=== PATIENT | female | born 2000 | race Two or more races ===

== ENCOUNTER 2020-09-16 16:13 | Emergency (ER) | payer SELFPAY ==
[2020-09-16] MEDS ORDERED: Sodium Chloride 0.9% 1,000 ML IV ONE (16:45)
[2020-09-16] MEDS ORDERED: Sodium Chloride 0.9% 2.5 ML Syringe FLUSH PRN (16:45)
[2020-09-16] MEDS ORDERED: Ondansetron 4 MG/2 ML SDV IVPUSH ONE (16:45)
[2020-09-16] MEDS ORDERED: Ketorolac 30 MG/ML SDV IVPUSH ONE (16:45)
[2020-09-16] MEDS ORDERED: Sodium Chloride 0.9% 10 ML Syringe FLUSH PRN (16:45)
[2020-09-16] MEDS ORDERED: Morphine 2 MG/ML SYRINGE IVPUSH ONE (16:45)
[2020-09-16 17:38] LABS: BLOOD UREA NITROGEN,BUN 12 mg/dL (7.0-18.0); CARBON DIOXIDE,CO2 22.7 mmol/L (21.0-32.0); CHLORIDE,CL 107 mmol/L (98-107); GLUCOSE RANDOM 93 mg/dL (74-106); LIPASE 149 U/L (73-393); POTASSIUM,K 3.5 mmol/L (3.5-5.1); SODIUM,NA 143 mmol/L (136-145)
--- NOTE | 2020-09-16 18:58 | CT ---
INDICATION: Right lower quadrant pain. Blood in stool TECHNIQUE: CT abdomen and pelvis acquired with IV contrast. 100 mL of Isovue 370 administered. COMPARISON: None available FINDINGS: Lower chest: Unremarkable. Liver: Unremarkable. Spleen: Unremarkable. Pancreas: Unremarkable. Gallbladder and bile ducts: Unremarkable. Adrenal glands: Unremarkable. Kidneys: Unremarkable. GI tract: No bowel obstruction. A normal appendix. No significant pericolonic changes. Vascular structures: Unremarkable. Lymph nodes: Unremarkable. Miscellaneous: No significant free fluid or free air. Pelvic Organs: Bladder wall thickening, partially related to underdistention. No gross uterine abnormality seen. A 2.4 x 2.6 cm left adnexal low-density structure. Bones: Unremarkable for age. IMPRESSION: No evidence of appendicitis, diverticulitis or bowel obstruction. Bladder wall thickening. Correlate for cystitis. A 2.6 cm left adnexal cystic structure could represent a dominant follicle. Please note that all CT scans at this facility use dose modulation, iterative reconstruction, and/or weight-based dosing when appropriate to reduce radiation dose to as low as reasonably achievable. Dictated by Dale Irene MD @ Sep 16 2020 6:42PM Signed by Dr. Dale Irene @ Sep 16 2020 6:55PM
[2020-09-16] MEDS ORDERED: Iopamidol 755 Mg/ML 100 ML Bottle IVPUSH ONE (19:14)
--- NOTE | 2020-09-16 20:54 | US ---
INDICATION: Pelvic pain common dominant cyst on CT, rule out torsion COMPARISON: CT abdomen pelvis with contrast 09/16/2020 TECHNIQUE: Multiple grayscale sonographic images of the pelvis. Scanning was performed transvaginally. FINDINGS: The uterus measures 6.4 x 4.4 x 3.2 cm. There is normal myometrial echotexture. The endometrial lining is normal thickness, measuring up to 0.3 cm. The right ovary measures 3.2 x 3.0 x 1.4 cm. Normal follicular changes are seen in the right ovary with a dominant 1.5 cm follicle. The left ovary measures 3.9 x 3.7 x 2.2 cm. A 2.4 cm small cyst versus dominant follicle is noted in the left ovary. Intact vascular flow is demonstrated to both ovaries by spectral Doppler. No significant free fluid is demonstrated in the pelvis. IMPRESSION: 1. Normal follicular changes in both ovaries. 2.4 cm dominant follicle/small cyst noted on the left. No evidence of ovarian torsion. 2. Normal uterus. Dictated by Demetra Wilson MD @ Sep 16 2020 8:47PM Signed by Dr. Demetra Wilson @ Sep 16 2020 8:53PM
[2020-09-16] MEDS ORDERED: cefTRIAXone 500 MG in Lidocaine 1% 2 ML IM ONE (21:41)
--- NOTE | 2020-09-16 21:43 | EDM.PDOC ---
ED HPI GENERAL MEDICAL PROBLEM - General Chief Complaint: Abdominal Pain Stated Complaint: ABDOMINAL PAIN Time Seen by Provider: 09/16/20 16:14 Source of Information: Reports: Patient History Limitations: Reports: No Limitations - History of Present Illness INITIAL COMMENTS - FREE TEXT/NARRATIVE: HISTORY AND PHYSICAL: History of present illness: [employer] / NEFTALY was used to obtain HPI as patient is exclusively speaking. Patient is a 20-year-old female presents to the ED today with concern of right lower quadrant abdominal pain that started this morning and worsening throughout the day. Patient states that she has had a few episodes of blood in her stools and states that it is bright red in color. Patient states her last episode of blood was earlier this morning. Patient states that she "had a colon issue "many years ago but is not sure what this was. Patient states that she has not taken any medications for her symptoms. Patient states that she has not been sexually active for a year and a half so states that she is not . Patient also has the Nexplanon for control. Patient denies fever, chills, chest pain, shortness of breath, or cough. Denies headache, neck stiff ness, change in vision, syncope, or near syncope. Denies nausea, vomiting, diarrhea, constipation, or dysuria. Has not noted any blood in urine. Patient has been eating and drinking appropriately. Review of systems: As per history of present illness and below otherwise all systems reviewed and negative. Past medical history: As per history of present illness and as reviewed below otherwise noncontributory. Surgical history: As per history of present illness and as reviewed below otherwise noncontributory. Social history: See social history for further information Family history: As per history of present illness and as reviewed below otherwise noncontributory. Physical exam: General: Patient is alert, oriented, and in no acute distress. Patient laying comfortably on exam table. Vitals stable and reviewed by me. HEENT: Atraumatic, normocephalic, pupils equal and reactive bilaterally, negative for conjunctival pallor or scleral icterus, mucous membranes moist, TMs normal bilaterally, throat clear, neck supple, nontender, trachea midline. No drooling or trismus noted. No meningeal signs. No hot potato voice noted. Lungs: Clear to auscultation, breath sounds equal bilaterally, chest nontender. Heart: S1S2, regular rate and rhythm without overt murmur Abdomen: Soft, nondistended, moderate RLQ tenderness with guarding, negative rebound, negative johnson. Negative for masses or hepatosplenomegaly. Negative for costovertebral tenderness. Pelvis: Stable nontender. Genitourinary: Copy Chaser at bedside Erik [place]na[place]. External genitalia is grossly unremarkable. There is a moderate to large amount of white thick vaginal discharge in the vaginal vault. Unable to fully visualize the cervix due to patient's discomfort. The vaginal vault does appear to be erythematous and irritated. The cervix is tender with palpation and positive chandelier sign. Uterus is tender to palpation. Rectal: Copy Chaser at bedside Erik Hanson. Rectal tone intact. No obvious hemorrhoids, masses, lesions, fissures, or gross blood noted. Hemoccult is negative. Skin: Intact, warm, dry. No lesions or rashes noted. Extremities: Atraumatic, negative for cords or calf pain. Neurovascular unremarkable. Neuro: Awake, alert, oriented. Cranial nerves II through XII unremarkable. Cerebellum unremarkable. Motor and sensory unremarkable throughout. Exam no nfocal. Notes: Upon initial exam, patient does have moderate RLQ tenderness with guarding. She does complain of blood in stool but Hemoccult negative. Lab work today is unremarkable. Abdominal pelvic CT scan with contrast shows concern for ovarian cyst but does not clearly visualize this. On exam, patient does have cervical motion tenderness. We will treat for pelvic inflammatory disease and obtain TVUS to r/o TOA. Discussed importance for follow-up with a women's health provider. Signs and symptoms that were prompt return to the ED thoroughly discussed with patient. Voices understanding and is agreeable to plan of care. Denies any further questions or concerns at this time. Diagnostics: CBC, CMP, UA, hcg, Lipase, Abd/Pelvic CT w cont, TVUS, Affirm, G&C, Hemoccult Therapeutics: Rocephin, NS, Toradol, Morphine Prescription: Doxycycline, Flagyl, Diflucan Impression: Pelvic inflammatory disease Candidal Vaginitis Bacterial Vaginosis Plan: 1. Take medication as prescribed. You can alternate ibuprofen and Tylenol as directed for pain and discomfort. 2. Follow-up with a womens health care provider as discussed. The phone number has been provided above for you to call and set up an appointment time. Return to the ED as needed and as discussed. 3. Refrain from sexual intercourse until all labs have resulted and complete your treatment. Definitive disposition and diagnosis as appropriate pending reevaluation and review of above. Abdominal Pain Score (Numeric/FACES): 7 - Related Data Allergies Allergy/AdvReac Type Severity Reaction Status Date / Time No Known Allergies Allergy Verified 09/16/20 16:34 Home Meds: Home Meds Doxycycline [Vibramycin] 100 mg PO BID 14 Days #20 cap 09/16/20 [Rx] Fluconazole [Diflucan] 150 mg PO ONETIME #2 tablet 09/16/20 [Rx] metroNIDAZOLE [Flagyl] 500 mg PO Q12H 7 Days #14 tab 09/16/20 [Rx] Past Medical History - Past Health History Medical/Surgical History: Denies Medical/Surgical History Other Gastrointestinal History: possible colitis - Infectious Disease History Infectious Disease History: Reports: None Social & Family History - Tobacco Use Tobacco Use Status *Q: Never Tobacco User - Caffeine Use Caffeine Use: Reports: None - Recreational Drug Use Recreational Drug Use: No ED ROS GENERAL - Review of Systems Review Of Systems: Comprehensive ROS is negative, except as noted in HPI. ED EXAM, GENERAL - Physical Exam Exam: See Below (see dictation) Course - Vital Signs Last Recorded V/S: Last Vital Signs Temp 98 F 09/16/20 22:10 Pulse 63 09/16/20 22:10 Resp 16 09/16/20 22:10 BP 105/60 09/16/20 22:10 Pulse Ox 99 09/16/20 22:10 - Orders/Labs/Meds Orders: Active Orders 24 hr Category Date Time Status CHLAMYDIA AND GONORRHEA BY TMA Stat Lab 09/16/20 21:35 Received Saline Lock Insert [OM.PC] Stat Oth 09/16/20 16:45 Ordered Labs: Laboratory Tests 09/16/20 09/16/20 09/16/20 Range/Units 16:27 16:40 16:40 WBC 8.37 (4.0-11.0) K/uL RBC 4.81 (4.30-5.90) M/uL Hgb 13.8 (12.0-16.0) g/dL Hct 40.9 (36.0-46.0) % MCV 85.0 (80.0-98.0) fL MCH 28.7 (27.0-32.0) pg MCHC 33.7 (31.0-37.0) g/dL RDW Std Deviation 44.5 (28.0-62.0) fl RDW Coeff of Artur 14 (11.0-15.0) % Plt Count 168 (150-400) K/uL MPV 12.90 H (7.40-12.00) fL Neut % (Auto) 42.4 L (48.0-80.0) % Lymph % (Auto) 46.2 H (16.0-40.0) % Tyler % (Auto) 8.1 (0.0-15.0) % Eos % (Auto) 3.1 (0.0-7.0) % Baso % (Auto) 0.2 (0.0-1.5) % Neut # (Auto) 3.5 (1.4-5.7) K/uL Lymph # (Auto) 3.9 H (0.6-2.4) K/uL Tyler # (Auto) 0.7 (0.0-0.8) K/uL Eos # (Auto) 0.3 (0.0-0.7) K/uL Baso # (Auto) 0.0 (0.0-0.1) K/uL Nucleated RBC % 0.0 /100WBC Nucleated RBCs # 0 K/uL Sodium 143 (136-145) mmol/L Potassium 3.5 (3.5-5.1) mmol/L Chloride 107 (98-107) mmol/L Carbon Dioxide 22.7 (21.0-32.0) mmol/L BUN 12 (7.0-18.0) mg/dL Creatinine 0.8 (0.6-1.0) mg/dL Est Cr Clr Drug Dosing 100.94 mL/min Estimated GFR (MDRD) > 60.0 ml/min Glucose 93 (74-106) mg/dL Calcium 8.8 (8.5-10.1) mg/dL Total Bilirubin 0.2 (0.2-1.0) mg/dL AST 29 (15-37) IU/L ALT 44 (14-63) IU/L Alkaline Phosphatase 128 H (46-116) U/L Total Protein 7.7 (6.4-8.2) g/dL Albumin 3.7 (3.4-5.0) g/dL Globulin 4.0 (2.6-4.0) g/dL Albumin/Globulin Ratio 0.9 (0.9-1.6) Lipase 149 (73-393) U/L HCG, Qual (NEG) Urine Color YELLOW Urine Appearance CLEAR Urine pH 5.5 (5.0-8.0) Ur Specific [place] 1.025 (1.001-1.035) Urine Protein NEGATIVE (NEGATIVE) mg/dL Urine Glucose (UA) NEGATIVE (NEGATIVE) mg/dL Urine Ketones NEGATIVE (NEGATIVE) mg/dL Urine Occult Blood NEGATIVE (NEGATIVE) Urine Nitrite NEGATIVE (NEGATIVE) Urine Bilirubin NEGATIVE (NEGATIVE) Urine Urobilinogen 0.2 (<2.0) EU/dL Ur Leukocyte Esterase NEGATIVE (NEGATIVE) Yu species DNA (NEGATIVE) Gardnerella DNA Probe (NEGATIVE) Trichomonas DNA Probe (NEGATIVE) 09/16/20 09/16/20 Range/Units 16:40 21:40 WBC (4.0-11.0) K/uL RBC (4.30-5.90) M/uL Hgb (12.0-16.0) g/dL Hct (36.0-46.0) % MCV (80.0-98.0) fL MCH (27.0-32.0) pg MCHC (31.0-37.0) g/dL RDW Std Deviation (28.0-62.0) fl RDW Coeff of Artur (11.0-15.0) % Plt Count (150-400) K/uL MPV (7.40-12.00) fL Neut % (Auto) (48.0-80.0) % Lymph % (Auto) (16.0-40.0) % Tyler % (Auto) (0.0-15.0) % Eos % (Auto) (0.0-7.0) % Baso % (Auto) (0.0-1.5) % Neut # (Auto) (1.4-5.7) K/uL Lymph # (Auto) (0.6-2.4) K/uL Tyler # (Auto) (0.0-0.8) K/uL Eos # (Auto) (0.0-0.7) K/uL Baso # (Auto) (0.0-0.1) K/uL Nucleated RBC % /100WBC Nucleated RBCs # K/uL Sodium (136-145) mmol/L Potassium (3.5-5.1) mmol/L Chloride (98-107) mmol/L Carbon Dioxide (21.0-32.0) mmol/L BUN (7.0-18.0) mg/dL Creatinine (0.6-1.0) mg/dL Est Cr Clr Drug Dosing mL/min Estimated GFR (MDRD) ml/min Glucose (74-106) mg/dL Calcium (8.5-10.1) mg/dL Total Bilirubin (0.2-1.0) mg/dL AST (15-37) IU/L ALT (14-63) IU/L Alkaline Phosphatase (46-116) U/L Total Protein (6.4-8.2) g/dL Albumin (3.4-5.0) g/dL Globulin (2.6-4.0) g/dL Albumin/Globulin Ratio (0.9-1.6) Lipase (73-393) U/L HCG, Qual NEGATIVE (NEG) Urine Color Urine Appearance Urine pH (5.0-8.0) Ur Specific [place] (1.001-1.035) Urine Protein (NEGATIVE) mg/dL Urine Glucose (UA) (NEGATIVE) mg/dL Urine Ketones (NEGATIVE) mg/dL Urine Occult Blood (NEGATIVE) Urine Nitrite (NEGATIVE) Urine Bilirubin (NEGATIVE) Urine Urobilinogen (<2.0) EU/dL Ur Leukocyte Esterase (NEGATIVE) Yu species DNA POSITIVE H (NEGATIVE) Gardnerella DNA Probe POSITIVE H (NEGATIVE) Trichomonas DNA Probe NEGATIVE (NEGATIVE) Meds: Medications Discontinued Medications Generic Name Dose Route Start Last Admin Trade Name Freq PRN Reason Stop Dose Admin Sodium Chloride 1,000 mls @ 999 mls/hr 09/16/20 16:45 09/16/20 16:52 Normal Saline IV 09/16/20 17:45 999 mls/hr BOLUS ONE Administration Ceftriaxone Sodium 500 mg/ 2 mls @ 2 mls/sec 09/16/20 21:41 09/16/20 22:05 Lidocaine HCl IM 09/16/20 21:42 2 mls/sec ONETIME ONE Administration Iopamidol 100 ml 09/16/20 19:14 09/16/20 19:15 Isovue-370 (76%) IVPUSH 09/16/20 19:15 100 ml ONETIME ONE Administration Ketorolac Tromethamine 30 mg 09/16/20 16:45 09/16/20 16:51 Toradol IVPUSH 09/16/20 16:46 30 mg ONETIME ONE Administration Morphine Sulfate 2 mg 09/16/20 16:45 09/16/20 16:51 Morphine IVPUSH 09/16/20 16:46 2 mg ONETIME ONE Administration Ondansetron HCl 4 mg 09/16/20 16:45 09/16/20 16:51 Zofran IVPUSH 09/16/20 16:46 4 mg ONETIME ONE Administration Sodium Chloride 10 ml 09/16/20 16:45 09/16/20 16:52 Saline Flush FLUSH 10 ml ASDIRECTED PRN Administration Keep Vein Open Sodium Chloride 2.5 ml 09/16/20 16:45 09/16/20 16:52 Saline Flush FLUSH 2.5 ml ASDIRECTED PRN Administration Keep Vein Open Departure - Departure Time of Disposition: 21:42 Disposition: Home, Self-Care 01 Clinical Impression: Pelvic inflammatory disease, Candidal vaginitis, Bacterial vaginosis - Discharge Information Prescriptions: Fluconazole [Diflucan] 150 mg PO ONETIME #2 tablet metroNIDAZOLE [Flagyl] 500 mg PO Q12H 7 Days #14 tab Doxycycline [Vibramycin] 100 mg PO BID 14 Days #20 cap Referrals: PCP,None [Primary Care Provider] - Forms: ED Department Discharge Additional Instructions: The following information is given to patients seen in the emergency department who are being discharged to home. This information is to outline your options for follow-up care. We provide all patients seen in our emergency department w ith a follow-up referral. The need for follow-up, as well as the timing and circumstances, are variable depending upon the specifics of your emergency department visit. If you don't have a primary care physician on staff, we will provide you with a referral. We always advise you to contact your personal physician following an emergency department visit to inform them of the circumstance of the visit and for follow-up with them and/or the need for any referrals to a consulting specialist. The emergency department will also refer you to a specialist when appropriate. This referral assures that you have the opportunity for follow-up care with a specialist. All of these measure are taken in an effort to provide you with optimal care, which includes your follow-up. Under all circumstances we always encourage you to contact your private physician who remains a resource for coordinating your care. When calling for follow-up care, please make the office aware that this follow-up is from your recent emergency room visit. If for any reason you are refused follow-up, please contact the [facility] Emergency Department at and asked to speak to the emergency department charge nurse. [facility] [address] [address] [facility] [address] [place] [id number] [facility] [address] [place] [address] 1. Take medication as prescribed. You can alternate ibuprofen and Tylenol as directed for pain and discomfort. 2. Follow-up with a [facility] provider as discussed. The phone number has been provided above for you to call and set up an appointment time. Return to the ED as needed and as discussed. 3. Refrain from sexual intercourse until all labs have resulted and complete your treatment. Sepsis Event Note (ED) - Evaluation Sepsis Screening Result: No Definite Risk - My Orders Last 24 Hours: My Active Orders 09/16/20 16:45 Saline Lock Insert [OM.PC] Stat 09/16/20 21:35 CHLAMYDIA AND GONORRHEA BY TMA Stat - Assessment/Plan Last 24 Hours: My Active Orders 09/16/20 16:45 Saline Lock Insert [OM.PC] Stat 09/16/20 21:35 CHLAMYDIA AND GONORRHEA BY TMA Stat
[2020-09-18 22:07] LABS: C.TRACHOMATIS BY TMA Negative (Negative); N.GONORRHOEAE BY TMA Negative (Negative)
== END 2020-09-16 22:10 | disposition home or self-care (01) ==
LOC: MW.ED 16:13
DX: N76.0 Acute vaginitis (principal); B96.89 Other specified bacterial agents as the cause of diseases classified elsewhere; B37.3 Candidiasis of vulva and vagina; N73.9 Female pelvic inflammatory disease, unspecified
CPT/HCPCS: 36415; 74177; 76830; 80053; 81003; 83690; 84703; 85025; 87480; 87491; 87510; 87591; 87660; 96372; 96374; 96375; 99284; J0696; J1885; J2270; J2405; J7030; Q9967